=== PATIENT | female | born 1935 | race Caucasian/White ===

== ENCOUNTER 2022-09-12 18:15 | Inpatient (IN) ==
[2022-09-12] MEDS ORDERED: Melatonin 3 MG TABLET PO PRN (22:34)
[2022-09-12] MEDS ORDERED: Naloxone 0.4 MG/ML INJ IVP PRN (22:34)
[2022-09-12] MEDS ORDERED: Ondansetron 4 MG/2 ML VIAL IVP PRN (22:34)
[2022-09-12] MEDS ORDERED: Ringers Solution, Lactated 1,000 ML IVC SCH (22:45)
[2022-09-13] MEDS: *HR* HYDROcodone/Acet 5/325 mg TABLET PO PRN (00:46)
[2022-09-13 02:12] LABS: Calcium 8.9 mg/dL (8.6-10.3); Potassium 4.4 mEq/L (3.5-5.1)
[2022-09-13 02:19] LABS: Basophils % 0.2 %; Hematocrit 34.7 % (35.3-44.9); Hemoglobin 11.4 g/dL (11.5-15.4); Immature Granulocytes % 0.3 % (0-4); Lymphocytes # 0.5 K/mcL (0.6-4.6); Lymphocytes % 4.7 %; Mean Corpuscular HGB Conc 32.9 g/dL (31.6-35.5); Mean Corpuscular Hemoglobin 29.2 pg (28.0-33.3); Monocytes % 5.2 %; Neutrophils # 9.4 K/mcL (1.6-8.9); Platelet Count 254 K/mcL (140-400); Red Cell Distribution Width 13.1 % (11.5-14.5); Segmented Neutrophils % 89.6 %; White Blood Count 10.5 K/mcL (4.3-11.1)
[2022-09-13 02:29] LABS: Monocytes # 0.6 K/mcL (0.0-1.3)
[2022-09-13] MEDS: *HR* Heparin 5,000 UNIT/ML VIAL SQ SCH ×3 (06:25→21:31)
[2022-09-13] MEDS ORDERED: CeFAZolin Syr 2,000MG/20 ML 2,000 MG/20 ML SYRINGE IVPB ONE (14:21)
[2022-09-13] MEDS ORDERED: *HR* FentaNYL (PF) 100 MCG/2 ML VIAL ONE (14:29)
[2022-09-13] MEDS ORDERED: Ondansetron 4 MG/2 ML VIAL ONE (14:29)
[2022-09-13] MEDS ORDERED: *HR* Propofol 200 MG/20 ML VIAL IVP ONE (14:29)
[2022-09-13] MEDS ORDERED: Lidocaine -MPF 2% 2 ML VIAL ONE (14:29)
[2022-09-13] MEDS ORDERED: *HR* Labetalol 20 MG/4 ML SYRINGE IVP PRN (14:31)
[2022-09-13] MEDS ORDERED: *HR* FentaNYL (PF) 100 MCG/2 ML VIAL IVP PRN (14:31)
[2022-09-13] MEDS ORDERED: Ipratropium Neb 0.5 MG NEBULIZER IH PRN (14:31)
[2022-09-13] MEDS ORDERED: Albuterol 2.5 MG/3 ML NEBULIZER IH PRN (14:31)
[2022-09-13] MEDS ORDERED: *HR* OxyCODONE Immed Rel 5 MG TABLET PO PRN (14:31)
[2022-09-13] MEDS ORDERED: Ondansetron 4 MG/2 ML VIAL IVP PRN (14:31)
[2022-09-13] MEDS ORDERED: Acetaminophen IV 500 MG/50 ML BAG IVPB ONE (15:03)
[2022-09-13] MEDS: *HR* HYDROmorphone PF 0.5 MG/0.5 ML SYRINGE IVP PRN ×4 (15:52→16:08)
[2022-09-13 17:18] LABS: INR 1.3; Prothrombin Time 14.4 Seconds (9.4-12.1)
[2022-09-13] MEDS: CeFAZolin 2,000 MG/120 ML BAG IVPB SCH (21:42)
[2022-09-14] MEDS: *HR* HYDROcodone/Acet 5/325 mg TABLET PO PRN (04:55)
[2022-09-14 05:12] LABS: Basophils % 0.4 %; Eosinophils % 0.4 %; Hematocrit 29.6 % (35.3-44.9); Hemoglobin 9.6 g/dL (11.5-15.4); Immature Granulocytes % 0.4 % (0-4); Lymphocytes # 0.6 K/mcL (0.6-4.6); Lymphocytes % 8.3 %; Mean Corpuscular HGB Conc 32.4 g/dL (31.6-35.5); Mean Corpuscular Volume 89.4 fL (83.0-100.0); Mean Platelet Volume 9.7 fL (9.4-12.4); Monocytes # 0.6 K/mcL (0.0-1.3); Monocytes % 9.2 %; Neutrophils # 5.5 K/mcL (1.6-8.9); Platelet Count 192 K/mcL (140-400); Red Blood Count 3.31 M/mcL (3.82-4.97); Segmented Neutrophils % 81.3 %; White Blood Count 6.7 K/mcL (4.3-11.1)
[2022-09-14 05:31] LABS: Calcium 7.9 mg/dL (8.6-10.3); Magnesium 1.7 mg/dL (1.6-2.6); Potassium 4.2 mEq/L (3.5-5.1)
[2022-09-14] MEDS: *HR* Heparin 5,000 UNIT/ML VIAL SQ SCH ×3 (05:51→21:15)
[2022-09-14] MEDS: CeFAZolin 2,000 MG/120 ML BAG IVPB SCH ×3 (05:54→21:15)
[2022-09-14] MEDS: *HR* OxyCODONE Immed Rel 5 MG TABLET PO PRN (06:37)
[2022-09-14] MEDS: Acetaminophen 325 MG TABLET PO PRN ×2 (09:10→21:16)
[2022-09-14] MEDS: ALPRAZolam 0.5 MG TABLET PO SCH ×2 (14:54→21:17)
[2022-09-14] MEDS: Sennosides/Docusate Sodium TABLET PO SCH ×2 (14:54→21:16)
[2022-09-14] MEDS: polyethylene glycoL 3350 17 GM POWD.PACK PO SCH (14:55)
[2022-09-14] MEDS: Primidone 50 MG TABLET PO SCH (21:16)
[2022-09-14] MEDS: traZODone 50 MG TABLET PO SCH (21:16)
[2022-09-14] MEDS: Mirtazapine 15 MG TABLET PO SCH (21:17)
[2022-09-14] MEDS: risperiDONE 0.25 MG TABLET PO SCH (21:17)
[2022-09-15] MEDS: *HR* Heparin 5,000 UNIT/ML VIAL SQ SCH ×3 (06:06→22:14)
[2022-09-15] MEDS: CeFAZolin 2,000 MG/120 ML BAG IVPB SCH ×3 (06:07→22:15)
[2022-09-15] MEDS: Sennosides/Docusate Sodium TABLET PO SCH ×2 (09:56→20:28)
[2022-09-15] MEDS: ALPRAZolam 0.5 MG TABLET PO SCH ×3 (09:56→20:23)
[2022-09-15] MEDS: polyethylene glycoL 3350 17 GM POWD.PACK PO SCH (09:56)
[2022-09-15] MEDS: Primidone 50 MG TABLET PO SCH ×2 (09:58→20:22)
[2022-09-15] MEDS: risperiDONE 0.25 MG TABLET PO SCH ×2 (09:58→20:22)
[2022-09-15 17:56] LABS: Basophils # 0.1 K/mcL (0.0-0.2); Basophils % 1.3 %; Eosinophils # 0.2 K/mcL (0.0-0.6); Eosinophils % 5.4 %; Hematocrit 28.7 % (35.3-44.9); Hemoglobin 9.4 g/dL (11.5-15.4); Immature Granulocytes % 0.2 % (0-4); Lymphocytes % 22.9 %; Mean Corpuscular HGB Conc 32.8 g/dL (31.6-35.5); Mean Corpuscular Hemoglobin 29.2 pg (28.0-33.3); Mean Corpuscular Volume 89.1 fL (83.0-100.0); Mean Platelet Volume 10.6 fL (9.4-12.4); Monocytes # 0.6 K/mcL (0.0-1.3); Monocytes % 12.6 %; Neutrophils # 2.6 K/mcL (1.6-8.9); Platelet Count 198 K/mcL (140-400); Red Blood Count 3.22 M/mcL (3.82-4.97); Red Cell Distribution Width 13.1 % (11.5-14.5); Segmented Neutrophils % 57.6 %; White Blood Count 4.5 K/mcL (4.3-11.1)
[2022-09-15 18:19] LABS: Calcium 8.2 mg/dL (8.6-10.3); Magnesium 1.7 mg/dL (1.6-2.6); Potassium 3.6 mEq/L (3.5-5.1)
[2022-09-15] MEDS: traZODone 50 MG TABLET PO SCH (20:22)
[2022-09-15] MEDS: Mirtazapine 15 MG TABLET PO SCH (20:22)
[2022-09-15] MEDS: Acetaminophen 325 MG TABLET PO PRN (20:23)
[2022-09-16] MEDS: *HR* OxyCODONE Immed Rel 5 MG TABLET PO PRN (04:26)
[2022-09-16] MEDS: CeFAZolin 2,000 MG/120 ML BAG IVPB SCH (06:28)
[2022-09-16] MEDS: *HR* Heparin 5,000 UNIT/ML VIAL SQ SCH ×2 (06:28→14:18)
[2022-09-16] MEDS: polyethylene glycoL 3350 17 GM POWD.PACK PO SCH (09:24)
[2022-09-16] MEDS: Primidone 50 MG TABLET PO SCH (09:25)
[2022-09-16] MEDS: ALPRAZolam 0.5 MG TABLET PO SCH ×2 (09:25→14:19)
[2022-09-16] MEDS: risperiDONE 0.25 MG TABLET PO SCH (09:25)
[2022-09-16] MEDS: Sennosides/Docusate Sodium TABLET PO SCH (09:25)
[2022-09-16 15:31] LABS: Influenza A PCR Negative (Negative); Influenza B PCR Negative (Negative); Resp. Syncytial Virus PCR Positive (Negative)
[2022-09-16 15:32] LABS: SARS-CoV-2 by PCR (In House) Negative (Negative)
[2022-09-16 16:24] VITALS: TEMP 98.5; O2SAT 95
[2022-09-16 18:53] VITALS: BP 132/65; PULSE 94
== END 2022-09-16 19:00 | DRG 481 ==
LOC: 4WAOSI → SUATTDRO 21:18 → 4WAOSI 21:47 → SUATTDRO 09-13 11:45
PROVIDERS: ADMIT Internal Medicine; ATTEND Family Medicine